=== PATIENT | male | born 1970 | race Caucasian/White ===

== ENCOUNTER 2017-07-29 12:23 | Outpatient (CLI) | payer OTHER | END 2017-07-29 13:06 | disposition home or self-care (01) | LOC: MRI 12:23 | DX: M51.26 Other intervertebral disc displacement, lumbar region (principal) | CPT/HCPCS: 72148 ==

== ENCOUNTER 2017-07-29 12:26 | Outpatient (CLI) | payer OTHER | END 2017-07-29 13:07 | disposition home or self-care (01) | LOC: SONOGRAMA 12:26 | DX: M77.11 Lateral epicondylitis, right elbow (principal) ==

== ENCOUNTER 2017-07-29 12:28 | Outpatient (CLI) | payer OTHER | END 2017-07-29 13:08 | disposition home or self-care (01) | LOC: RAD 12:28 | DX: M54.5 Low back pain (principal); M51.26 Other intervertebral disc displacement, lumbar region ==